=== PATIENT | male | born 1955 | race Caucasian/White ===

== ENCOUNTER 2018-07-18 07:55 | Outpatient (REF) | payer OTHER, SELFPAY ==
[2018-07-18 19:19] LABS: ALT 27 U/L (12-78); Anion Gap 10.6 mmol/L (3-11); BUN 14 mg/dL (7-18); CO2 24.4 mmol/L (21.0-32.0); Calcium 8.7 mg/dL (8.5-10.1); Chloride 104 mmol/L (98-107); Glucose 87 mg/dL (70-100); Potassium 4.2 mmol/L (3.5-5.1); Sodium 139 mmol/L (136-145)
[2018-07-18 19:36] LABS: LDL CHOLESTEROL 158 mg/dL (<100)
== END 2018-07-18 08:15 ==
LOC: NCHCN 07:55
PROVIDERS: PCP Internal Medicine; Visit Provider Internal Medicine
DX: Z00.00 Encounter for general adult medical examination without abnormal findings (principal); F41.9 Anxiety disorder, unspecified; I10 Essential (primary) hypertension
CPT/HCPCS: 80048; 83721; 84460